=== PATIENT | male | born 1995 | race Caucasian/White ===

== ENCOUNTER 2020-07-16 10:34 | Emergency (ER) | payer MEDICAID ==
[~2020-07-16] VITALS: Ht 172.7 cm; Wt 88.0 kg
[2020-07-16] MEDS ORDERED: SILVER SULFADIAZINE 1% CREAM 25GM TOP ONE (11:30)
[2020-07-16] MEDS ORDERED: HYDROCODONE/ACETAMINOPHEN 5/325MG TABLET PO ONE (11:30)
[2020-07-16] MEDS ORDERED: SILV20CR13 TP (11:41)
[2020-07-16 12:00] VITALS: BP 131/93
== END 2020-07-16 13:26 | disposition home or self-care (01) ==
LOC: ER 10:34
DX: T21.22XD Burn of second degree of abdominal wall, subsequent encounter (principal); T21.21XD Burn of second degree of chest wall, subsequent encounter; T79.9XXA Unspecified early complication of trauma, initial encounter
CPT/HCPCS: 99283